=== PATIENT | male | born 1970 | race Caucasian/White ===

== ENCOUNTER 2018-11-03 15:38 | Emergency (ER) | payer BC ==
[~2018-11-03] VITALS: Ht 167.6 cm; Wt 83.0 kg
[~2018-11-03 15:38] MED LIST: BACDS PO; DIPH-423 PO; DOCU-28 PO; FAMO-128 PO; IBUP-1984 PO
[2018-11-03 16:07] VITALS: BP 134/78
[2018-11-03] MEDS ORDERED: oxyCODONE/APAP 10/325mg tablet PO ONE (17:30)
[2018-11-03] MEDS ORDERED: sulfamethoxazole/trimethoprim DS (800/160mg) tablet PO ONE (17:30)
[2018-11-03] MEDS ORDERED: SULF1TAB49 PO (17:38)
[2018-11-03] MEDS ORDERED: OXYC-150 PO (17:38)
[2018-11-03] MEDS ORDERED: diphenhydrAMINE 25mg capsule PO ONE (17:40)
== END 2018-11-03 17:59 | disposition home or self-care (01) ==
LOC: ER 15:39
DX: L98.8 Other specified disorders of the skin and subcutaneous tissue (principal); G89.29 Other chronic pain; Z86.14 Personal history of Methicillin resistant Staphylococcus aureus infection; Z88.6 Allergy status to analgesic agent; Z88.5 Allergy status to narcotic agent; Z88.8 Allergy status to other drugs, medicaments and biological substances; Z79.899 Other long term (current) drug therapy
CPT/HCPCS: 99284; Q0163

== ENCOUNTER 2019-06-06 06:53 | Emergency (ER) | payer BC ==
[~2019-06-06] VITALS: Ht 167.6 cm; Wt 81.4 kg
[~2019-06-06 06:53] MED LIST changes: +OXYC-150 PO
[2019-06-06 07:04] VITALS: BP 127/78
--- NOTE | 2019-06-06 07:08 | NUR ---
FELL INTO HOLE WHILE FILLING IN AN OLD SWIMMING POOL WITH CEMENT AND DIRT. SHIRT GOT CAUGHT ON HANDLE OF WHEELBARREL AND TOSSED HIM INTO THE HOLE. PATIENT STATES HE LANDED ON HIS RIGHT SIDE, SUSTAINING INJURY TO RIGHT SIDE AND RIB AREA. STATES MINOR ABRASION TO RIGHT UPPER THIGH, BUT NOW HAVING DIFFICULTY WITH DEEP BREATHING, PAIN WITH SNEEZE AND COUGH. LARGE BRUISE NOTED TO RIGHT RIB AREA. PAIN RATED 7/10. TAKING ALEVE FOR PAIN.
[2019-06-06] MEDS ORDERED: ketorolac trometh inj. 60 MG/2 ML VIAL IM ONE (08:05)
== END 2019-06-06 08:22 | disposition home or self-care (01) ==
LOC: ER 06:53
DX: S20.211A Contusion of right front wall of thorax, initial encounter (principal); G89.29 Other chronic pain; Z88.6 Allergy status to analgesic agent; Z88.8 Allergy status to other drugs, medicaments and biological substances; W17.2XXA Fall into hole, initial encounter; Y93.89 Activity, other specified; Y92.89 Other specified places as the place of occurrence of the external cause; Y99.8 Other external cause status
CPT/HCPCS: 71250; 96372; 99284; J1885

== ENCOUNTER 2019-08-12 09:22 | Emergency (ER) | payer BC ==
[~2019-08-12] VITALS: Ht 167.6 cm; Wt 64.0 kg
[2019-08-12 10:00] LABS: CLARITY,URINE CLEAR (Clear); COLOR,URINE YELLOW (Yellow); GLUCOSE, URINE NEGATIVE (Neg); KETONES,URINE NEGATIVE (Neg); LEUKOCYTE ESTERASE ,URINE NEGATIVE (Neg); NITRITES, URINE NEGATIVE (Neg); OCCULT BLOOD,URINE NEGATIVE (Neg); PROTEIN,URINE NEGATIVE (Neg); UROBILINOGEN,URINE 0.2 E.U/dL (0.2-1.0)
[2019-08-12 10:01] LABS: UA COLLECTION TYPE CLN CATCH MIDSTREAM
[2019-08-12 10:03] LABS: BASOPHILS % (AUTO) 0.3 % (0-1); EOSINOPHILS # (AUTO) 0.1 X10'3 (0-0.9); EOSINOPHILS % (AUTO) 1.8 % (0-6); HEMATOCRIT 44.3 % (42.0-52.0); HEMOGLOBIN 15.3 g/dl (14.0-17.9); LYMPHOCYTES % (AUTO) 23.1 % (21-51); MEAN CORPUSCULAR HEMOGLOBIN 31.2 PG (27.0-31.0); MEAN CORPUSCULAR HGB CONC 34.5 g/dL (33.0-36.5); MEAN CORPUSCULAR VOLUME 90.6 FL (78-98); MONOCYTES # (AUTO) 0.9 X10'3 (0-0.9); MONOCYTES % (AUTO) 11.2 % (2-12); NEUTROPHILS # (AUTO) 5.4 X10'3 (1.8-7.7); NEUTROPHILS % (AUTO) 63.6 % (42-75); PLATELET COUNT 294 X10'3 (140-440); RED BLOOD COUNT 4.89 X10'6 (4.70-6.10); RED CELL DISTRIBUTION WIDTH 13.6 % (11.5-14.5); WHITE BLOOD COUNT 8.5 X10'3 (4.5-11.0)
[2019-08-12 10:14] LABS: ALANINE AMINOTRANSFERASE 38 U/L (12-78); ALKALINE PHOSPHATASE 56 IU/L (46-116); ANION GAP 7 (8-16); ASPARTATE AMINO TRANSFERASE 32 U/L (10-37); BILIRUBIN,TOTAL 0.7 MG/DL (0.1-1.0); BLOOD UREA NITROGEN 23 MG/DL (7-18); CALCIUM 8.9 MG/DL (8.5-10.1); CHLORIDE 105 MMOL/L (99-107); CREATININE 0.96 MG/DL (0.60-1.10); GLUCOSE 100 MG/DL (70-104); LIPASE 144 U/L (73-393); POTASSIUM 3.9 MMOL/L (3.5-5.1); SODIUM 140 MMOL/L (135-145); TOTAL PROTEIN 8.2 G/DL (6.4-8.2); eGFR 84 ML/MIN
[2019-08-12 11:57] VITALS: BP 131/59
== END 2019-08-12 11:56 | disposition home or self-care (01) ==
LOC: ER 09:22
DX: R10.31 Right lower quadrant pain (principal); G89.29 Other chronic pain; Z98.890 Other specified postprocedural states; Z88.6 Allergy status to analgesic agent; Z88.5 Allergy status to narcotic agent; Z79.899 Other long term (current) drug therapy
CPT/HCPCS: 36415; 74176; 80053; 81003; 83690; 85025; 99284

== ENCOUNTER 2020-06-01 12:12 | Inpatient (IN) | payer BC ==
[~2020-06-01] VITALS: Ht 167.6 cm; Wt 82.0 kg
[2020-06-01 12:48] LABS: BASOPHILS % (AUTO) 0.4 % (0-1); EOSINOPHILS # (AUTO) 0.3 X10'3 (0-0.9); HEMATOCRIT 43.3 % (42.0-52.0); HEMOGLOBIN 14.9 g/dl (14.0-17.9); LYMPHOCYTES # (AUTO) 2.6 X10'3 (1.1-4.8); LYMPHOCYTES % (AUTO) 39.8 % (21-51); MEAN CORPUSCULAR HGB CONC 34.3 g/dL (33.0-36.5); MEAN CORPUSCULAR VOLUME 90.5 FL (78-98); MONOCYTES # (AUTO) 0.7 X10'3 (0-0.9); MONOCYTES % (AUTO) 10.2 % (2-12); NEUTROPHILS % (AUTO) 45.6 % (42-75); PLATELET COUNT 272 X10'3 (140-440); RED BLOOD COUNT 4.78 X10'6 (4.70-6.10); RED CELL DISTRIBUTION WIDTH 13.8 % (11.5-14.5); WHITE BLOOD COUNT 6.5 X10'3 (4.5-11.0)
[2020-06-01 12:59] LABS: ALANINE AMINOTRANSFERASE 53 U/L (12-78); ALBUMIN 3.8 G/DL (3.4-5.0); ALKALINE PHOSPHATASE 49 IU/L (46-116); ANION GAP 5 (8-16); ASPARTATE AMINO TRANSFERASE 32 U/L (10-37); BILIRUBIN,TOTAL 0.4 MG/DL (0.1-1.0); BLOOD UREA NITROGEN 27 MG/DL (7-18); BUN/CREATININE RATIO 30.7 (5.4-32.0); CALCIUM 8.6 MG/DL (8.5-10.1); CHLORIDE 106 MMOL/L (99-107); CREATININE 0.88 MG/DL (0.60-1.10); GLUCOSE 109 MG/DL (70-104); POTASSIUM 3.9 MMOL/L (3.5-5.1); SODIUM 139 MMOL/L (135-145); TOTAL CARBON DIOXIDE 27.9 MMOL/L (24-32); TOTAL PROTEIN 7.5 G/DL (6.4-8.2); eGFR > 90 ML/MIN
[2020-06-01 13:05] LABS: MAGNESIUM 2.1 MG/DL (1.5-2.4)
[2020-06-01] MEDS ORDERED: enoxaparin 80mg/0.8ml syringe SUBCUT ONE (14:25)
[2020-06-01] MEDS ORDERED: aspirin 81mg tab.chew PO ONE (14:25)
[2020-06-01] MEDS ORDERED: magnesium hydroxide 30ml (MOM) UD suspension PO PRN (15:05)
[2020-06-01] MEDS ORDERED: mag hydrox/Alum hydrox/simeth 30ml oral suspension PO PRN (15:05)
[2020-06-01] MEDS ORDERED: ondansetron/PF 4mg/2ml inj IV PRN (15:05)
[2020-06-01] MEDS ORDERED: acetaminophen 325mg tablet PO PRN (15:05)
[2020-06-01] MEDS: nitroGLYCERIN 0.4mg SUBLingual tab SL PRN (17:16)
[2020-06-01] MEDS: HYDROmorphone inj. 0.5 MG/0.5 ML DISP.SYRIN IV PRN ×2 (17:17→22:09)
[2020-06-01] MEDS ORDERED: NO HOME MEDS (18:10)
--- NOTE | 2020-06-01 21:59 | NUR ---
Paged Dr. Palacios. PAGER ID: [phone] MESSAGE: This is KALLIE Lomeli from [facility]. Pt in [address] 50 M Dx : ANALIA NSTEMI is asking for pain medication for 7 pain. Pt stated that he feels itchy with r narcotic meds, but ok if he has Benadryl. Can he have other pain meds?
[2020-06-01 22:00] VITALS: BP 123/85
[2020-06-01] MEDS ORDERED: diphenhydrAMINE 25mg capsule PO PRN (22:05)
[2020-06-02] VITALS (13 sets, daily range): BP systolic 123–138; BP diastolic 69–100
[2020-06-02 01:25] LABS: BASOPHILS % (AUTO) 0.2 % (0-1); EOSINOPHILS # (AUTO) 0.1 X10'3 (0-0.9); EOSINOPHILS % (AUTO) 1.1 % (0-6); HEMATOCRIT 42.7 % (42.0-52.0); HEMOGLOBIN 14.6 g/dl (14.0-17.9); LYMPHOCYTES # (AUTO) 1.5 X10'3 (1.1-4.8); LYMPHOCYTES % (AUTO) 14.8 % (21-51); MEAN CORPUSCULAR HEMOGLOBIN 31.3 PG (27.0-31.0); MEAN CORPUSCULAR HGB CONC 34.2 g/dL (33.0-36.5); MEAN CORPUSCULAR VOLUME 91.4 FL (78-98); MEAN PLATELET VOLUME 8.2 FL (7.4-10.4); MONOCYTES # (AUTO) 0.5 X10'3 (0-0.9); MONOCYTES % (AUTO) 5.4 % (2-12); NEUTROPHILS # (AUTO) 7.9 X10'3 (1.8-7.7); NEUTROPHILS % (AUTO) 78.5 % (42-75); PLATELET COUNT 242 X10'3 (140-440); RED BLOOD COUNT 4.68 X10'6 (4.70-6.10); RED CELL DISTRIBUTION WIDTH 14.1 % (11.5-14.5); WHITE BLOOD COUNT 10.1 X10'3 (4.5-11.0)
[2020-06-02 01:41] LABS: ALBUMIN 3.8 G/DL (3.4-5.0); ANION GAP 6 (8-16); BLOOD UREA NITROGEN 28 MG/DL (7-18); BUN/CREATININE RATIO 33.3 (5.4-32.0); CALCIUM 8.8 MG/DL (8.5-10.1); CHLORIDE 105 MMOL/L (99-107); CHOL/HDL RATIO 2.6 (0.00-4.99); CHOLESTEROL 173 MG/DL (0-200); CREATININE 0.84 MG/DL (0.60-1.10); GLUCOSE 119 MG/DL (70-104); HDL CHOLESTEROL 66 MG/DL (35-60); LDL CHOLESTEROL 93 MG/DL (50-100); POTASSIUM 3.8 MMOL/L (3.5-5.1); SODIUM 138 MMOL/L (135-145); TRIGLYCERIDES 66 MG/DL (20-135); eGFR > 90 ML/MIN
--- NOTE | 2020-06-02 06:34 | NUR ---
Problems reprioritized. Patient report given, questions answered & plan of care reviewed with KALLIE Don.
--- NOTE | 2020-06-02 07:25 | NUR ---
Patient in room PCU 3027. I have received report from Petra ARREGUIN and had the opportunity to ask questions and assume patient care.
[2020-06-02] MEDS ORDERED: aspirin 81mg tablet.DR PO SCH (08:00)
[2020-06-02] MEDS: nitroGLYCERIN 0.4mg SUBLingual tab SL PRN ×2 (09:32→09:58)
--- NOTE | 2020-06-02 09:33 | NUR ---
Patient had c/o 6/10 chest pain which is the same description of when he was admitted. Pt. describes at constant stabbing pain. MD at bedside, ordered to give nitro X 2 and see if effective, may consider nitro gtt. BP 120/64
--- NOTE | 2020-06-02 10:08 | NUR ---
PAGER ID: [phone] MESSAGE: [id number] [place], Nitro given X2, pain is less but not by much. Rated 5/10, also complains of SOUSA now. JULIANNA Don RN
--- NOTE | 2020-06-02 11:24 | NUR ---
Pt. resting comfortably with no signs of distress. Will continue to monitor chest pain.
[2020-06-02] MEDS: HYDROmorphone inj. 0.5 MG/0.5 ML DISP.SYRIN IV PRN (12:19)
[2020-06-02] MEDS ORDERED: midazolam 2 mg/2 ml injection ONE (12:37)
[2020-06-02] MEDS ORDERED: fentaNYL/PF 50MCG/1 ML 2ML syringe ONE (12:37)
[2020-06-02] MEDS ORDERED: LIDOcaine 1% (10mg/ml)w/preservative injection 20ml MDV ONE (12:39)
[2020-06-02] MEDS ORDERED: nitroGLYCERIN-Tridil 50MG/D5W 250 ML IV ONE (12:39)
[2020-06-02] MEDS ORDERED: verapamil 2.5 mg/ml inj IV ONE (12:39)
[2020-06-02] MEDS ORDERED: heparin 1,000unit/ml 10ml vial 10 ML ONE (12:40)
[2020-06-02] MEDS ORDERED: iohexol 350MG/ML 100ml bottle IV ONE ×2 (12:40→15:01)
--- NOTE | 2020-06-02 13:46 | NUR ---
PAGER ID: [phone] MESSAGE: [phone] Arianna Malcolm radial cath negative. Can patient eat? Florencia ARREGUIN [id number]
[2020-06-02] MEDS ORDERED: OXAZEpam 15mg capsule PO PRN (13:50)
[2020-06-02] MEDS ORDERED: ondansetron/PF 4mg/2ml inj IV PRN (13:50)
[2020-06-02] MEDS ORDERED: proCHLORperazine 10 MG/2 ml inj IV PRN (13:50)
--- NOTE | 2020-06-02 15:34 | NUR ---
PAGER ID: [phone] MESSAGE: [id number] CHRISTI Malcolm is trying to contact you regarding IV contrast. Florencia ARREGUIN [id number]
--- NOTE | 2020-06-02 16:42 | NUR ---
PAGER ID: [phone] MESSAGE: [phone] [place], CTA negative. Florencia ARREGUIN
--- NOTE | 2020-06-02 17:03 | NUR ---
PAGER ID: [phone] MESSAGE: [id number]. Pt. would like to speak to you prior to discharge. Tried answering all questions but would like it to be from you. Florencia ARREGUIN [id number]
--- NOTE | 2020-06-02 17:22 | NUR ---
Patient had no complications post cath. CTA was negative. Post op vitals within normal range. Pt. offers no complaints at this time.
--- NOTE | 2020-06-02 17:54 | NUR ---
PAGER ID: [phone] MESSAGE: [id number] [place], patient is discharging at 1830, requesting to speak to you again. Florencia ARREGUIN
--- NOTE | 2020-06-02 17:56 | NUR ---
Discharge instructions reviewed with patient. Pt. requested to speak with MD, page sent. Results of angio and CTA reviewed with patient. Educated patient on the importance of making a primary appointment. All records given to patient. Pt. was worried that he was unsure what caused the issue. Awaiting arrival of MD to have discussion prior to DC. PIV's removed Pt. is being monitored on tele until his ride arrives.
--- NOTE | 2020-06-02 18:00 | NUR ---
Patient in room PCU 3027. I have received report from Florencia ARREGUIN and had the opportunity to ask questions and assume patient care.
--- NOTE | 2020-06-02 18:30 | NUR ---
Patient discharged without incident via wheelchair, all discharge paperwork reviewed with patient by david Argueta
--- NOTE | 2020-06-02 18:33 | NUR ---
Problems reprioritized. Patient report given, questions answered & plan of care reviewed with Anna ARREGUIN.
== END 2020-06-02 18:30 | disposition home or self-care (01) | DRG 287 ==
LOC: ER 12:13 → ED HOLD 15:06 → EDBEDREQ 18:34 → PCU 3S 19:09
PROVIDERS: ADMIT Internal Medicine; ATTEND Internal Medicine
PROC: 4A023N7 Measurement of Cardiac Sampling and Pressure, Left Heart, Percutaneous Approach (ICD-10-PCS; principal; 2020-06-02)
PROC: B2111ZZ Fluoroscopy of Multiple Coronary Arteries using Low Osmolar Contrast (ICD-10-PCS; 2020-06-02)
DX: R07.89 Other chest pain (principal); I25.2 Old myocardial infarction; K21.9 Gastro-esophageal reflux disease without esophagitis
CPT/HCPCS: 36415; 71045; 71275; 80048; 80053; 80061; 83735; 83880; 84484; 85025; 87081; 93005; 93306; 93458; 99152; 99153; 99285; A4620; A5120; C1769; C1894; G0378; J1170; J1644; J1650; J2001; J2250; J2405; J3010; J3490; Q0163; Q9967

== ENCOUNTER 2020-08-04 07:20 | Emergency (ER) | payer BC ==
[~2020-08-04] VITALS: Ht 167.6 cm; Wt 90.4 kg
[~2020-08-04 07:20] MED LIST changes: -BACDS PO; -DIPH-423 PO; -DOCU-28 PO; -FAMO-128 PO; -IBUP-1984 PO; +NO HOME MEDS; -OXYC-150 PO
[2020-08-04 08:13] LABS: BASOPHILS % (AUTO) 0.5 % (0-1); EOSINOPHILS # (AUTO) 0.3 X10'3 (0-0.9); EOSINOPHILS % (AUTO) 4.1 % (0-6); HEMATOCRIT 43.3 % (42.0-52.0); HEMOGLOBIN 14.8 g/dl (14.0-17.9); LYMPHOCYTES # (AUTO) 2.2 X10'3 (1.1-4.8); LYMPHOCYTES % (AUTO) 32.6 % (21-51); MEAN CORPUSCULAR HEMOGLOBIN 31.7 PG (27.0-31.0); MEAN CORPUSCULAR HGB CONC 34.2 g/dL (33.0-36.5); MEAN CORPUSCULAR VOLUME 92.8 FL (78-98); MEAN PLATELET VOLUME 8.3 FL (7.4-10.4); MONOCYTES # (AUTO) 0.8 X10'3 (0-0.9); NEUTROPHILS # (AUTO) 3.5 X10'3 (1.8-7.7); NEUTROPHILS % (AUTO) 50.8 % (42-75); PLATELET COUNT 262 X10'3 (140-440); RED BLOOD COUNT 4.67 X10'6 (4.70-6.10); RED CELL DISTRIBUTION WIDTH 13.8 % (11.5-14.5); WHITE BLOOD COUNT 6.8 X10'3 (4.5-11.0)
[2020-08-04 08:26] LABS: ALANINE AMINOTRANSFERASE 57 U/L (12-78); ALBUMIN 3.9 G/DL (3.4-5.0); ALBUMIN/GLOBULIN RATIO 1.1 (1.1-1.5); ALKALINE PHOSPHATASE 55 IU/L (46-116); ANION GAP 6 (8-16); ASPARTATE AMINO TRANSFERASE 30 U/L (10-37); BILIRUBIN,TOTAL 0.3 MG/DL (0.1-1.0); BLOOD UREA NITROGEN 27 MG/DL (7-18); BUN/CREATININE RATIO 29.3 (5.4-32.0); CALCIUM 8.9 MG/DL (8.5-10.1); CHLORIDE 107 MMOL/L (99-107); CREATININE 0.92 MG/DL (0.60-1.10); GLUCOSE 114 MG/DL (70-104); POTASSIUM 4.1 MMOL/L (3.5-5.1); SODIUM 139 MMOL/L (135-145); TOTAL CARBON DIOXIDE 26.1 MMOL/L (24-32); TOTAL PROTEIN 7.5 G/DL (6.4-8.2); eGFR 88 ML/MIN
[2020-08-04 08:32] LABS: MAGNESIUM 2.2 MG/DL (1.5-2.4)
[2020-08-04 09:23] VITALS: BP 129/83
== END 2020-08-04 09:25 | disposition home or self-care (01) ==
LOC: ER 07:21
DX: R07.89 Other chest pain (principal); R00.2 Palpitations; G89.29 Other chronic pain; Z98.890 Other specified postprocedural states; Z72.89 Other problems related to lifestyle; Z88.6 Allergy status to analgesic agent; Z88.8 Allergy status to other drugs, medicaments and biological substances
CPT/HCPCS: 36415; 71045; 80053; 83735; 83880; 84484; 85025; 93005; 99285

== ENCOUNTER 2024-07-14 14:16 | Outpatient (CLI) | payer MEDICAID | END 2024-07-14 23:59 | disposition home or self-care (01) | LOC: RAD 14:16 | PROVIDERS: ATTEND Podiatrist Foot & Ankle Surgery | DX: Z48.89 Encounter for other specified surgical aftercare (principal); M19.071 Primary osteoarthritis, right ankle and foot; R26.2 Difficulty in walking, not elsewhere classified; M25.671 Stiffness of right ankle, not elsewhere classified; R53.1 Weakness; M79.671 Pain in right foot; M25.471 Effusion, right ankle | CPT/HCPCS: 73700 ==

== ENCOUNTER 2024-07-23 08:52 | Emergency (ER) | payer MEDICAID ==
[~2024-07-23] VITALS: Ht 167.6 cm; Wt 88.5 kg
[2024-07-23 08:55] VITALS: BP 192/96; PULSE 55; O2SAT 99
[2024-07-23] MEDS ORDERED: CLIN300C54 PO (09:15)
[2024-07-23] MEDS: HYDROcodone/acetaminophen 5mg/325mg tablet PO ONE (09:15)
[2024-07-23 09:16] VITALS: RESP 16
[2024-07-23] MEDS: clindamycin 150mg capsule PO ONE (09:16)
[2024-07-23] MEDS: ketorolac trometh 30MG/ML vial 30 MG/ML VIAL IM ONE (09:16)
[2024-07-23 09:23] VITALS: TEMP 98
[2024-07-24] MEDS ORDERED: HYDR-3965 PO (12:02)
== END 2024-07-23 09:28 | disposition home or self-care (01) ==
LOC: ER 08:52
DX: K04.7 Periapical abscess without sinus (principal); I21.9 Acute myocardial infarction, unspecified; G89.29 Other chronic pain; Z88.5 Allergy status to narcotic agent; Z88.8 Allergy status to other drugs, medicaments and biological substances
CPT/HCPCS: 96372; 99283; J1885

== ENCOUNTER 2024-10-11 11:46 | Emergency (ER) | payer MEDICAID ==
[~2024-10-11] VITALS: Ht 167.6 cm; Wt 80.9 kg
[2024-10-11] MEDS: diphenhydrAMINE 25mg capsule PO ONE (15:01)
[2024-10-11] MEDS: HYDROcodone/acetaminophen 10/325mg tab PO ONE (15:02)
[2024-10-12 01:42] VITALS: BP 152/65; PULSE 69; RESP 18; TEMP 97.9; O2SAT 99
== END 2024-10-11 15:45 | disposition home or self-care (01) ==
LOC: ER 11:46
DX: M79.661 Pain in right lower leg (principal); G89.29 Other chronic pain; I21.9 Acute myocardial infarction, unspecified; Z88.5 Allergy status to narcotic agent; Z88.8 Allergy status to other drugs, medicaments and biological substances
CPT/HCPCS: 29515; 93971; 99284; A6222; A6223; Q0163; A6258; A6446; A6449

== ENCOUNTER 2025-01-05 09:34 | Outpatient (CLI) | payer MEDICAID | END 2025-01-05 23:59 | disposition home or self-care (01) | LOC: MRI02 09:34 | PROVIDERS: ATTEND Specialist/Technologist Athletic Trainer | DX: M19.071 Primary osteoarthritis, right ankle and foot (principal); M79.671 Pain in right foot; R26.2 Difficulty in walking, not elsewhere classified; M25.671 Stiffness of right ankle, not elsewhere classified; R53.1 Weakness; M76.70 Peroneal tendinitis, unspecified leg; M25.373 Other instability, unspecified ankle; M25.471 Effusion, right ankle; Z48.89 Encounter for other specified surgical aftercare; R60.0 Localized edema | CPT/HCPCS: 73718 ==

== ENCOUNTER 2025-04-26 07:59 | Day surgery (SDC) | payer MEDICAID ==
[2025-04-23 10:45] LABS: LEUKOCYTE ESTERASE ,URINE NEGATIVE (Neg); NITRITES, URINE NEGATIVE (Neg); OCCULT BLOOD,URINE NEGATIVE (Neg)
[2025-04-23 10:46] LABS: MEAN PLATELET VOLUME 8.0 FL (7.4-10.4); PRE OP HEMATOCRIT 44.1 % (42.0-52.0); PRE OP HEMOGLOBIN 15.0 g/dL (14.0-17.9); PRE OP PLATELET COUNT 274 X10'3 (140-440); PRE OP WHITE BLOOD COUNT 5.5 10'3 (4.8-10.8); RED CELL DISTRIBUTION WIDTH 14.2 % (11.5-14.5)
[2025-04-23 10:52] LABS: UA COLLECTION TYPE NON-SPECIFIED
[2025-04-23 10:57] LABS: CREATININE 0.82 MG/DL (0.60-1.10); PRE OP ANION GAP 6 (8-16); PRE OP AST 46 U/L (10-37); PRE OP BILIRUB, TOTAL 0.5 MG/DL (0.0-1.0); PRE OP GLUCOSE 103 MG/DL (70-104); PRE OP POTASSIUM 4.3 MMOL/L (3.4-5.1); PRE OP SODIUM 139 MMOL/L (135-145); TOTAL CARBON DIOXIDE 29.6 MMOL/L (24-32); eGFR > 90 ML/MIN
[2025-04-23 10:58] LABS: PRE OP ALT 84 U/L (30-65)
[2025-04-26] VITALS (17 sets, daily range): BP systolic 77–148; BP diastolic 35–93; PULSE 47–60; RESP 11–16; TEMP 97.4; O2SAT 95–100
[~2025-04-26] VITALS: Ht 167.6 cm; Wt 86.0 kg
[2025-04-26] MEDS: ceFAZolin 2gm/dext,iso 50mL 50 ML IV ONE (05:30)
[~2025-04-26 07:59] MED LIST changes: +CYCL-1 PO; +LOSA50TA64 PO; -NO HOME MEDS; +PREG75CA76 PO
[2025-04-26] MEDS: ringers solution, lacted 1,000 ML IV SCH (08:26)
[2025-04-26] MEDS ORDERED: ROPIVAcaine 0.5% (5mg/ml) 30ml vial ONE ×2 (10:05)
[2025-04-26] MEDS ORDERED: propofol inj 20 ML IV ONE (10:08)
[2025-04-26] MEDS ORDERED: propofol inj 0 ML IV ONE (10:08)
[2025-04-26] MEDS ORDERED: LIDOcaine 2% (20mg/ml) 5ml vial ONE (10:08)
[2025-04-26] MEDS ORDERED: dexamethasone sod phosphate 4mg/ml inj. ONE (10:08)
[2025-04-26] MEDS ORDERED: ondansetron/PF 4mg/2ml inj ONE (10:09)
[2025-04-26] MEDS ORDERED: fentaNYL/PF 50MCG/1 ML 2ML syringe ONE ×2 (10:55→11:17)
[2025-04-26] MEDS ORDERED: acetaminophen 1,000mg/100ml IV 100 ML IV ONE (10:56)
[2025-04-26] MEDS ORDERED: vancomycin 1,000mg inj ONE ×2 (11:05→11:09)
[2025-04-26] MEDS ORDERED: ringers solution, lacted 1,000 ML IV SCH (11:35)
[2025-04-26] MEDS ORDERED: ketamine 50mg/5ml syringe IV PRN (11:35)
[2025-04-26] MEDS ORDERED: ondansetron/PF 4mg/2ml inj IV PRN (11:35)
[2025-04-26] MEDS ORDERED: enalaprilat 1.25mg/ml 2ml vial IV PRN (11:35)
[2025-04-26] MEDS ORDERED: hydrALAZINE 20mg/ml inj. IV PRN (11:35)
[2025-04-26] MEDS ORDERED: HYDROmorphone/PF 0.2 MG/ML SYRINGE IV PRN ×2 (11:35)
[2025-04-26] MEDS ORDERED: fentaNYL/PF 50MCG/1 ML 2ML syringe IV PRN ×2 (11:35)
--- NOTE | 2025-04-26 11:47 | ANESTHESIA RECORDS ---
Nerve Block Providers to CC CC: ELO JENKINS DPM ~ Diagnosis: Nerve Block requested by: ELO JENKINS DPM Neuraxial/Peripheral Nerve Block requested for Post-operative analgesia by Physician above DIAGNOSIS: Post-operative pain. (Body Area) Shoulder: [ ] Arm: [ ] Hand: [ ] Hip: [ ] Knee: [ ] Ankle: [ Right ] Foot: [ ] Leg: [ ] Abdomen: [ ] Other: [ ] Post-operative pain expected to be/is inadequately managed by oral or IV medicines. Regional anesthetic expected to facilitate rehabilitation and/or discharge from facility. Other:[ _] Procedure Performed: Femoral / Saphenous: Right Popliteal Lateral: Right Time out Done?: Yes Time of Time out: 10:20 Procedure Details: PROCEDURE DETAILS: Risks, benefits and alternatives explained Informed consent obtained, and patient wishes to proceed Conscious sedation with indicated monitors Patient positioned, pertinent anatomy defined, sterile technique used Needle used: [ ] 3 1/8 inch Stimuplex Ultra 22ga [ ] 4 inch Stimuplex Ultra 20ga [X ] 6 inch Stimuplex Ultra 20ga [X ] 6 inch, Quikbloc over the needle catheter set 20ga [ ] 4 inch Quikbloc over the needle catheter set 20ga [ ]Other: [ ] Loss of twitch @ [ 0.4 ]mA [X ] Single Injection [ X] Catheter Ultrasound Guidance Used: [X ] Yes [ ] No Attempts:[_1,1 ] Medicines injected: [ ]Clonidine Amt:[ ] [ X ]Dexamethasone Amt:[_4mg ] [X ]Ropivacaine Amt:[_0.5% 60 c.c ] [ ]Bupivacaine Amt:[ ] [ ]Lidocaine Amt:[ ] [ ]Exparel 1.33%:[ ] [ ]Epinephrine Amt[ ] [X ]Other: [_exparel 50 mcg ] Intermittent aspiration during local anesthetic administration No symptoms of intraneural or intravenous injection Patient tolerated procedure well Comments Right Sciatic nerve block Catheter Placement: Right posterior thigh is examined with Ultrasound and popliteal vessels,sciatic nerve are identified. Catheter over needle is placed near the bundle and upon stimulation Foot contractions noted. Local mix is 35 c.c injected,spread is noted. Needle is removed,catheter is secured. sterile dressing applied ultrasound image is captured,documented. On q Pump is ordered for postop pain management. Right Adductor canal Block: Right mid medial thigh is examined, Adductor canla, vessels are identified. Needle is placed in the canal. 25 c.c local mix is injected,after negative aspiration. Ultrasound image is captured, documented. BRITTANY ROSENTHAL MD Apr 26, 2025 11:47
[2025-04-26] MEDS ORDERED: bacitracin 15gm ointment TP ONE (12:58)
[2025-04-26] MEDS: ROPIVAcaine 0.2% (10 MG/5 ML) BOLUS INJECTION POPLITEAL PRN (13:49)
[2025-04-26] MEDS: ROPIVAcaine 0.2%/PF PUMP/bolus 545 ML POPLITEAL SCH (13:50)
--- NOTE | 2025-04-26 13:52 | OPERATIVE REPORT ---
DATE OF SURGERY: 04/26/2025 DICTATING PHYSICIAN: Erik Guajardo MD PREOPERATIVE DIAGNOSES: * Gastrocnemius equinus deformity, right lower extremity. * Right ankle pain with retained total ankle arthroplasty implant. POSTOPERATIVE DIAGNOSES: * Gastrocnemius equinus deformity, right lower extremity. * Right ankle pain with retained total ankle arthroplasty implant. PROCEDURES PERFORMED: * Gastrocnemius recession, right lower extremity. * Tendo-Achilles lengthening, right ankle. * Revision total ankle arthroplasty with polyethylene exchange and gutter debridement, right ankle. SURGEON: Erik Guajardo MD FITTING ROOM OPERATOR: None. ANESTHESIA: General with popliteal and saphenous nerve block. ANESTHESIOLOGIST: Dr. Gaffney. ESTIMATED BLOOD LOSS: None. COMPLICATIONS: None. IMPLANTS USE: INBONE size 2+8 mm polyethylene insert. INDICATIONS: The patient was presented to my office with above-stated chief complaints. The patient's condition has been unresponsive to conservative treatment at this point, thus surgical options were offered at this time along with all potential risks, complications, and expected outcomes being fully explained to the patient's level of understanding. No guarantees given. Clinical and radiographic findings do correlate well with the above diagnoses. DESCRIPTION OF PROCEDURE: The patient was brought to the operating room and placed on the table in the supine position. Upon administration of the general anesthesia, the right leg was scrubbed, prepped and draped in usual aseptic manner. Pneumatic calf tourniquet, which had previously been applied, was now inflated to 275 mmHg. A 4 cm linear incision was performed on the medial aspect of the gastrocnemius aponeurosis on the right lower extremity. Incision was deepened in layered fashion with care being taken to identify and retract all vital neurovascular structures. All bleeders were ligated and cauterized as necessary. Next, the incision was deepened down to the deep fascia, which was transected exposing the gastrocnemius aponeurosis to the operative field. The gastroc aponeurosis was then transected from lateral to medial with minimal increased dorsiflexion of the right ankle. The wound was then flushed with sterile saline and closed with 3-0 Vicryl and 3-0 nylon. Next, a Thayer triple hemisection was performed to the Achilles tendon in the midsubstance of the Achilles tendon, standard fashion with another mild increased in dorsiflexion of the right ankle. This was closed with 3-0 nylon. Next, a 12-cm linear longitudinal incision was performed directly overlying the anterior aspect of the right ankle through the previously placed skin incision. Incision was deepened in layered fashion with care being taken to identify and retract all vital neurovascular structures. All bleeders were cauterized as necessary. Next, through meticulous dissection, incision was deepened on the ankle joint, which was exposed to operative view. There was noted to be a significant amount of synovitis and scar tissue formation over the anterior aspect of the ankle joint. This was completely evacuated and removed from the operative field. The ankle implant was isolated to the operative field. The metal components of the ankle prosthesis were stressed and were noted to be completely stable. There was no sign of micromotion whatsoever through the metal components of the implant. The retained polyethylene was removed in standard fashion. There was noted to be some mild posteromedial wear on the polyethylene. A combination of rongeurs and osteotomes were used to debride the medial and lateral gutters in standard fashion as well as the posterior ankle joint capsule, which was noted to be significantly tightened and scarred in. This did allow for excellent improvement in range of motion of the ankle joint in combination with the previously performed posterior column lengthening procedures. Next, according to standard surgical technique utilizing intraoperative fluoroscopy, a new 2+8 mm INBONE polyethylene was implanted into the total ankle prosthesis in standard fashion. There was noted to be excellent improvement in range of motion of the ankle joint. Intraoperative fluoroscopy was again utilized at this time to assess position of hardware and correction of the above-stated deformities were assessed at this time and noted to be excellent. All wounds were flushed with copious amounts of sterile saline. All deep and subcutaneous tissues were reapproximated utilizing 3-0 Vicryl. Skin incisions were reapproximated utilizing 3-0 nylon. All wounds were then covered with sterile triple ointment, sterile Adaptic, sterile 4 x 4, sterile Webril followed by stockinette, additional Webril, plaster posterior splint with sugar tongs and Jacob bandages in formation of moderate compression dressing. Sedation was now discontinued. Tourniquet was deflated with immediate hyperemic response was noted to the right foot. The patient was taken to PACU for postoperative monitoring. All vitals were stable and vascular status intact. The patient was given crutches and a knee scooter. He will follow up in my office in approximately 1-2 weeks. Erik Guajardo MD TID: [id number] RECEIPT: [id number] JOSUE/EDUAR
== END 2025-04-26 15:38 | disposition home or self-care (01) ==
LOC: PAS 07:59
PROVIDERS: ATTEND Podiatrist Foot & Ankle Surgery
DX: M62.461 Contracture of muscle, right lower leg (principal); M19.071 Primary osteoarthritis, right ankle and foot; G89.18 Other acute postprocedural pain; I10 Essential (primary) hypertension; Z79.899 Other long term (current) drug therapy; Z96.661 Presence of right artificial ankle joint; Z98.890 Other specified postprocedural states; Z88.5 Allergy status to narcotic agent; Z88.8 Allergy status to other drugs, medicaments and biological substances; Z81.8 Family history of other mental and behavioral disorders
CPT/HCPCS: 27685; 27687; 27703; 36415; 64445; 64447; 73600; 80053; 81003; 82948; 85025; A6223; C1776; J0131; J1100; J2003; J2405; J2704; J2795; J3010; J3373; J7030; J7120; Z7506; Z7508; Z7512; 76000; A4618; A6253; A6449; A7000